=== PATIENT | male | born 1950 | race Caucasian/White ===

== ENCOUNTER 2018-09-30 10:28 | Emergency (ER) | payer OTHER ==
[~2018-09-30] VITALS: Ht 170.2 cm; Wt 70.8 kg
[2018-09-30 10:36] VITALS: BP 125/107
== END 2018-09-30 13:17 | disposition home or self-care (01) ==
LOC: ED 10:28
DX: S01.01XA Laceration without foreign body of scalp, initial encounter (principal); E11.9 Type 2 diabetes mellitus without complications; W18.09XA Striking against other object with subsequent fall, initial encounter; Y93.89 Activity, other specified; Y92.89 Other specified places as the place of occurrence of the external cause; Y99.8 Other external cause status
CPT/HCPCS: 90715; J2001

== ENCOUNTER 2018-10-10 10:33 | Emergency (ER) | payer OTHER ==
[~2018-10-10] VITALS: Ht 175.3 cm; Wt 71.7 kg
[2018-10-10 10:54] VITALS: Ht 175.3 cm; Wt 71.7 kg
[2018-10-10 12:40] VITALS: BP 120/66
== END 2018-10-10 12:40 | disposition home or self-care (01) ==
LOC: ED 10:33
DX: L30.8 Other specified dermatitis (principal); S01.01XD Laceration without foreign body of scalp, subsequent encounter; E11.9 Type 2 diabetes mellitus without complications; X58.XXXD Exposure to other specified factors, subsequent encounter
CPT/HCPCS: J1100; J1200; J7512; Q0163

== ENCOUNTER → 2019-02-02 | Outpatient (CLI) | payer OTHER | END | disposition home or self-care (01) | LOC: RD 11:40 | DX: S82.142D Displaced bicondylar fracture of left tibia, subsequent encounter for closed fracture with routine healing (principal); X58.XXXD Exposure to other specified factors, subsequent encounter ==

== ENCOUNTER 2019-05-22 16:22 | Emergency (ER) | payer OTHER ==
[~2019-05-22] VITALS: Ht 175.3 cm; Wt 73.9 kg
[2019-05-22 16:31] VITALS: BP 176/93; Ht 175.3 cm; Wt 73.9 kg
== END 2019-05-22 17:29 | disposition home or self-care (01) ==
LOC: ED 16:22
DX: L30.9 Dermatitis, unspecified (principal); M54.30 Sciatica, unspecified side; E11.9 Type 2 diabetes mellitus without complications
CPT/HCPCS: J2920

== ENCOUNTER 2019-06-11 08:45 | Emergency (ER) | payer OTHER ==
[~2019-06-11] VITALS: Ht 175.3 cm; Wt 72.7 kg
[2019-06-11 08:50] VITALS: BP 155/82; Ht 175.3 cm; Wt 72.7 kg
== END 2019-06-11 09:25 | disposition home or self-care (01) ==
LOC: ED 08:45
DX: T78.49XA Other allergy, initial encounter (principal); L23.4 Allergic contact dermatitis due to dyes; R22.0 Localized swelling, mass and lump, head; E11.9 Type 2 diabetes mellitus without complications; X58.XXXA Exposure to other specified factors, initial encounter
CPT/HCPCS: J1100; Q0163

== ENCOUNTER 2019-07-07 08:43 | Emergency (ER) | payer OTHER ==
[~2019-07-07] VITALS: Ht 172.7 cm; Wt 68.0 kg
[2019-07-07 09:31] VITALS: BP 148/89
== END 2019-07-07 09:32 | disposition home or self-care (01) ==
LOC: ED 08:43
DX: L23.9 Allergic contact dermatitis, unspecified cause (principal); E11.9 Type 2 diabetes mellitus without complications; M54.30 Sciatica, unspecified side
CPT/HCPCS: J1100

== ENCOUNTER 2019-07-21 09:11 | Emergency (ER) | payer OTHER ==
[~2019-07-21] VITALS: Ht 172.7 cm; Wt 71.7 kg
[2019-07-21 09:32] VITALS: Ht 172.7 cm; Wt 71.7 kg
[2019-07-21 10:29] VITALS: BP 135/83
== END 2019-07-21 10:29 | disposition home or self-care (01) ==
LOC: ED 09:11
DX: L25.9 Unspecified contact dermatitis, unspecified cause (principal); E11.9 Type 2 diabetes mellitus without complications; Z98.890 Other specified postprocedural states
CPT/HCPCS: J2930

== ENCOUNTER 2019-09-17 10:31 | Emergency (ER) | payer OTHER ==
[~2019-09-17] VITALS: Ht 175.3 cm; Wt 74.4 kg
[2019-09-17 10:36] VITALS: BP 158/77; Ht 175.3 cm; Wt 74.4 kg
== END 2019-09-17 11:59 | disposition home or self-care (01) ==
LOC: ED 10:31
DX: T78.40XA Allergy, unspecified, initial encounter (principal); E11.9 Type 2 diabetes mellitus without complications; Z98.890 Other specified postprocedural states; X58.XXXA Exposure to other specified factors, initial encounter
CPT/HCPCS: J2930; Q0163

== ENCOUNTER 2019-11-11 12:45 | Emergency (ER) | payer OTHER ==
[~2019-11-11] VITALS: Ht 175.3 cm; Wt 73.9 kg
[2019-11-11 12:55] VITALS: Ht 175.3 cm; Wt 73.9 kg
[2019-11-11 13:30] VITALS: BP 144/67
== END 2019-11-11 13:30 | disposition home or self-care (01) ==
LOC: ED 12:45
DX: L25.9 Unspecified contact dermatitis, unspecified cause (principal); E11.9 Type 2 diabetes mellitus without complications; Z98.890 Other specified postprocedural states
CPT/HCPCS: J1100

== ENCOUNTER 2019-12-25 12:16 | Emergency (ER) | payer OTHER ==
[~2019-12-25] VITALS: Ht 165.1 cm; Wt 71.7 kg
[2019-12-25 12:24] VITALS: Ht 165.1 cm; Wt 71.7 kg
[2019-12-25 13:37] VITALS: BP 132/103
== END 2019-12-25 13:37 | disposition home or self-care (01) ==
LOC: ED 12:16
DX: B00.1 Herpesviral vesicular dermatitis (principal); E11.9 Type 2 diabetes mellitus without complications
CPT/HCPCS: J1100

== ENCOUNTER 2020-01-29 19:50 | Emergency (ER) | payer OTHER ==
[~2020-01-29] VITALS: Ht 175.3 cm; Wt 72.2 kg
[2020-01-29 21:30] VITALS: BP 157/85
== END 2020-01-29 21:30 | disposition home or self-care (01) ==
LOC: ED 19:50
DX: R21 Rash and other nonspecific skin eruption (principal); L29.9 Pruritus, unspecified; R22.0 Localized swelling, mass and lump, head; E11.9 Type 2 diabetes mellitus without complications; Z98.890 Other specified postprocedural states
CPT/HCPCS: 82962; J1100

== ENCOUNTER 2020-02-04 23:07 | Emergency (ER) | payer OTHER ==
[~2020-02-04] VITALS: Ht 175.3 cm; Wt 72.6 kg
[2020-02-04 23:18] VITALS: Ht 175.3 cm; Wt 72.6 kg
[2020-02-04 23:58] VITALS: BP 143/76
== END 2020-02-04 23:58 | disposition home or self-care (01) ==
LOC: ED 23:07
DX: L30.9 Dermatitis, unspecified (principal); E11.9 Type 2 diabetes mellitus without complications; Z98.890 Other specified postprocedural states
CPT/HCPCS: J1100

== ENCOUNTER 2020-02-14 21:36 | Emergency (ER) | payer OTHER ==
[~2020-02-14] VITALS: Ht 175.3 cm; Wt 71.8 kg
[2020-02-14 21:58] VITALS: Ht 175.3 cm; Wt 71.8 kg
[2020-02-14 22:54] VITALS: BP 144/83
== END 2020-02-14 22:54 | disposition home or self-care (01) ==
LOC: ED 21:36
DX: L03.011 Cellulitis of right finger (principal); R21 Rash and other nonspecific skin eruption; E11.9 Type 2 diabetes mellitus without complications; M54.42 Lumbago with sciatica, left side; Z98.890 Other specified postprocedural states
CPT/HCPCS: J1100

== ENCOUNTER 2020-02-22 20:08 | Emergency (ER) | payer OTHER ==
[~2020-02-22] VITALS: Ht 175.3 cm; Wt 71.7 kg
[2020-02-22 20:16] VITALS: Ht 175.3 cm; Wt 71.7 kg
[2020-02-22 21:35] VITALS: BP 132/77
== END 2020-02-22 21:35 | disposition home or self-care (01) ==
LOC: ED 20:08
DX: L30.9 Dermatitis, unspecified (principal); E11.9 Type 2 diabetes mellitus without complications; Z98.890 Other specified postprocedural states
CPT/HCPCS: J1100; J2920

== ENCOUNTER 2020-03-02 21:47 | Emergency (ER) | payer OTHER ==
[~2020-03-02] VITALS: Ht 175.3 cm; Wt 73.0 kg
[2020-03-02 22:28] VITALS: Ht 175.3 cm; Wt 73.0 kg
[2020-03-03 00:21] VITALS: BP 145/82
== END 2020-03-03 00:21 | disposition home or self-care (01) ==
LOC: ED 21:47
DX: R22.0 Localized swelling, mass and lump, head (principal); R21 Rash and other nonspecific skin eruption; E11.9 Type 2 diabetes mellitus without complications; Z98.890 Other specified postprocedural states
CPT/HCPCS: J2920

== ENCOUNTER 2020-03-09 09:17 | Emergency (ER) | payer OTHER ==
[~2020-03-09] VITALS: Ht 175.3 cm; Wt 72.6 kg
[2020-03-09 11:40] VITALS: BP 137/83
== END 2020-03-09 11:40 | disposition home or self-care (01) ==
LOC: ED 09:17
DX: L30.9 Dermatitis, unspecified (principal); R21 Rash and other nonspecific skin eruption
CPT/HCPCS: J2920